=== PATIENT | female | born 1935 | race Caucasian/White ===

== ENCOUNTER → 2023-09-20 14:02 | Outpatient (BNVA) | payer MEDICARE, OTHER, SELFPAY | PROVIDERS: Family Provider Family Medicine; Visit Provider Podiatrist Foot & Ankle Surgery | DX: M79.671 Pain in right foot (principal) | CPT/HCPCS: 73630 ==

== ENCOUNTER → 2023-09-28 12:58 | Outpatient (BNVA) | payer MEDICARE, OTHER, SELFPAY | PROVIDERS: Family Provider Family Medicine; Visit Provider Podiatrist Foot & Ankle Surgery | DX: M20.41 Other hammer toe(s) (acquired), right foot (principal); M20.42 Other hammer toe(s) (acquired), left foot; L60.3 Nail dystrophy; I73.9 Peripheral vascular disease, unspecified | CPT/HCPCS: 99203 ==

== ENCOUNTER → 2023-12-01 12:36 | Outpatient (BNVA) | payer MEDICARE, OTHER, SELFPAY | PROVIDERS: Family Provider Family Medicine; PCP Student in an Organized Health Care Education/Training Program; Visit Provider Podiatrist Foot & Ankle Surgery | DX: M20.41 Other hammer toe(s) (acquired), right foot (principal); M20.42 Other hammer toe(s) (acquired), left foot; L60.3 Nail dystrophy; M79.671 Pain in right foot; I73.9 Peripheral vascular disease, unspecified; L30.9 Dermatitis, unspecified; L84 Corns and callosities | CPT/HCPCS: 11056; 11721; 99213 ==

== ENCOUNTER 2024-01-19 14:04 | Emergency (ER) | payer MEDICARE, SELFPAY ==
[2024-01-19 14:08] VITALS: BP 100/73; PULSE 61; RESP 18; TEMP 37; O2SAT 95; BMI 27.4
--- NOTE | 2024-01-19 14:12 | XR_ITS ---
WS: [id number] Examination: XR knee RT 3V* [id number] Reason for Exam: trauma COMPARISON: None Date: January 19, 2024. FINDINGS: The bone density is diminished. There is no destruction. There is no fracture or dislocation Marginal and patellar osteophytes are present. There is a small joint effusion. Joint chondrocalcinos is is suspected. Space narrowing is identified Impression: There is osteopenia and degenerative changes. No displaced fracture is seen there is a small joint ef fusion present
--- NOTE | 2024-01-19 14:12 | CT_ITS ---
WS: [id number] CT CERVICAL TRAUMA TECHNIQUE: Noncontrast CT of the cervical spine with coronal and sagittal reformatted images. CLINICAL INFORMATION: trauma COMPARISON: None. DLP: 1342.[address] scans at [facility] use at least one of these dose optimization techniques: automated e xposure control; mA and/or kV adjustment per patient size (includes targeted exams where dose is matc hed to clinical indication); or iterative reconstruction. FINDINGS: Straightening of the normal cervical lordosis. Advancement spondylitic changes. Slight retrolisthesis C3 on C4 C4 on C5 C5 on C6. Disc space narrowing throughout the cervical spine. Pannus formation at the C1-2 articulation. Mild central canal stenosis C3-C4 C4-C5 and C5-C6. Dens is normal in appearance. Normal occipital condyles. Normal C1 ring. No evidence of acute fractu re or dislocation. Normal prevertebral soft tissues. Tiny RIGHT thyroid nodule. Fibrosis in the lung apices. Mastoids air cells are well aerated. IMPRESSION: No evidence of acute fracture or dislocation.
--- NOTE | 2024-01-19 14:12 | XR_ITS ---
WS: [id number] Examination: XR knee LT 3V* [id number] Reason for Exam: trauma Date: January 19, 2024 Comparison: None. Findings: The bone density is diminished. There is no destruction There is no fracture or dislocation. There is lateral joint space narrowing. Marginal osteophytes are present. There is chondrocalcinosis. Impression: Degenerative changes and osteopenia are present without displaced fracture.
--- NOTE | 2024-01-19 14:16 | CT_ITS ---
WS: [id number] CT HEAD TECHNIQUE: Noncontrast CT of the head obtained from the skullbase to the vertex. CLINICAL INFORMATION: trauma COMPARISON: None. DLP: 1342.[address] scans at [facility] use at least one of these dose optimization techniques: automated e xposure control; mA and/or kV adjustment per patient size (includes targeted exams where dose is matc hed to clinical indication); or iterative reconstruction. FINDINGS: No evidence of intracranial hemorrhage or mass effect. Ventricular system and basal cisterns are shirley nt. Moderate small vessel changes with moderate parenchymal volume loss. No extra-axial fluid collect ions. No evidence of mass or mass effect. Paranasal sinuses and mastoid air cells are well aerated. .Soft tissue edema overlying the RIGHT fron raz calvarium. No fractures. IMPRESSION: 1. No evidence of intracranial hemorrhage or mass effect. 2. No acute intracranial findings.
[2024-01-19 15:35] VITALS: RESP 18; O2SAT 98
--- NOTE | 2024-01-19 16:18 | ED_ITS ---
HPI - Fall General: Chief Complaint: Fall Stated Complaint: Fall Time Seen by Provider: 01/19/24 14:05 Source: patient Mode of arrival: ambulatory History of Present Illness: 88-year-old female presents to the emerg ency room after a fall at a local convenience store. She stumbled and fell mechanical ground-level fall no loss consciousness she has a hematoma over the right eye. She is not on any anticoagulants. She is complaining also some pain in her knees she states she has chronic pain in her knees but is worsened recently. Mechanical ground-level fall sole of the patient she was from the [place] where she stumbled. No deformity lower extremities sternal complaint is of knee and head pain no loss of consciousness. Patient has had falls in the past about 2 years ago resulting in a left hip fracture. She has a cane at home but she does not use it regularly MD complaint: fall Onset (ago): minute(s) Place fall occurred: street Loss of consciousness: None Prolonged down time: no Symptoms prior to fall: none Context: tripped/slipped Associated symptoms-after fall: Denies abdominal pain, chest pain or neck pain Review of Systems Const: Denies: fever(s) or chills Card: Denies: chest pain Resp: Denies: dyspnea GI: Denies: abdominal pain : Denies: dysuria, urinary frequency or urinary urgency Musc: Denies: neck pain or back pain Skin/Breast: Denies: rash Physical Exam Const: GENERAL APPEARANCE: cooperative and comfortable ORIENTATION/CONSCIOUSNESS: Yes awake, Yes oriented to person, Yes oriented to place and Yes oriented to time HENMT: COMMON NORMALS: normocephalic and hearing grossly normal bilaterally HEAD & SCALP: normocephalic OTHER: Hematoma forming above the left eye above the eyebrow no laceration Resp: COMMON NORMALS: normal respiratory effort, No retractions, No use of accessory muscles and clear to auscultation bilaterally AUSCULTATION: clear to auscultation bilaterally Cardio: COMMON NORMALS: regular rate, regular rhythm and No murmurs present (Cardio) RATE: regular rate RHYTHM: regular rhythm GI: COMMON NORMALS: Soft to palpation and No hepatosplenomegaly present AUSCULTATION: Yes normoactive bowel sounds PALPATION: Yes Soft to palpation, No Tenderness to palpation present (GI), No Guarding due to palpation present (GI) and Yes No hepatosplenomegaly present Extremity: COMMON NORMALS: normal to inspection, capillary refill normal, no clubbing, cyanosis or edema, no calf tenderness and no pedal edema OTHER: Palpation attested range of motion in all of the 4 extremities with no pain or deformity Neuro: SENSORIUM/ORIENTATION: Yes oriented to person, Yes oriented to place and Yes oriented to time Skin: COMMON NORMALS: no rashes or lesions noted GENERAL SKIN EXAM: no rashes or lesions noted Course Vital Signs: Vital signs: Vital Signs Temperature 98.6 F 01/19/24 14:08 Pulse Rate 61 01/19/24 14:08 Respiratory Rate 18 01/19/24 15:35 Blood Pressure 100/73 01/19/24 14:08 Pulse Oximetry 98 01/19/24 15:35 Oxygen Delivery Me thod Room Air 01/19/24 15:35 MDM - Fall Medical Decision Making Mechanical ground-level fall no identifiable injury on imaging. Discharge home follow-up with primary care as needed encourage use of ambulation aids to prevent falls in the future Medical Records I reviewed the patient's medical records. Lab Data I reviewed the patient's lab results. All radiology interpretation(s) finalized by discharge Discharge Plan Discharge Patient Disposition: Home Clinical Impression: Fall, Closed head injury Condition: Stable Prescriptions: No Action omeprazole 40 mg capsule,delayed release(DR/EC) 40 mg PO DAILY spironolactone 50 mg tablet 50 mg PO DAILY oxybutynin chloride 10 mg tablet extended release 24hr 10 mg PO BEDTIME carvedilol 12.5 mg tablet 12.5 mg PO BID triamcinolone acetonide 0.1 % cream 1 applic topical BID Qty: 454 0RF magnesium 250 mg Tablet 250 mg PO BEDTIME melatonin 5 mg Tablet 5 - 10 mg PO BEDTIME Aspir-81 81 mg Tablet,Delayed Release (Dr/Ec) 81 mg PO QAM Discharge Orders: Discharge ED (Routine); Ordered 01/19/24 Ordered By: Gary Petersen Referrals: Adalid Caballero MD [Primary Care Provider] - Discharge Diet: Usual diet Discharge Activity: Increase activity as tolerated Patient Instructions: Opioid Safety, Pain Management Activity Restrictions/Additional Instructions: Thank you for choosing [facility] for your healthcare needs today. Please realize this is an emergency room and that we are providing you with a medical screening exam and this may not be complete and all inclusive of all the testing and or work up that you may need to determine your ailment or severity of your illness. It is very important that you follow up as instructed or that you return to the Emergency Department should you have concerns or if your condition changes or worsens in any way. You were seen today after a fall. Your imaging did not show any acute fractures. Recommend that you consider use of ambulation aid to prevent further falls. Continue current medications follow-up with your primary care doctor if you have any further problems. Coding Level of Care Code ED Die [employer] Electronic for Wilfrid Rosales
== END 2024-01-19 16:45 | disposition home or self-care (01) ==
PROVIDERS: Emergency Provider Family Medicine; PCP Student in an Organized Health Care Education/Training Program
DX: S00.83XA Contusion of other part of head, initial encounter (principal); Z79.82 Long term (current) use of aspirin; W01.0XXA Fall on same level from slipping, tripping and stumbling without subsequent striking against object, initial encounter
CPT/HCPCS: 70450; 72125; 73562; 99284

== ENCOUNTER → 2024-03-29 12:36 | Outpatient (BNVA) | payer MEDICARE, OTHER, SELFPAY | PROVIDERS: PCP Student in an Organized Health Care Education/Training Program; Visit Provider Podiatrist Foot & Ankle Surgery | DX: I73.9 Peripheral vascular disease, unspecified (principal); L84 Corns and callosities; L60.3 Nail dystrophy; M79.671 Pain in right foot | CPT/HCPCS: 11056; 11721 ==